=== PATIENT | male | born 1960 | race Caucasian/White ===

== ENCOUNTER 2021-08-16 10:06 | Emergency (ER) | payer BC ==
[2021-08-16] MEDS ORDERED: Meclizine 25 MG Tab PO ONE (10:18)
[2021-08-16] MEDS ORDERED: Diazepam 5 MG Tab PO ONE (10:18)
[2021-08-16] MEDS ORDERED: Ondansetron 4 MG/2 ML SDV IVPUSH ONE (10:19)
[2021-08-16] MEDS ORDERED: Sodium Chloride 0.9% 10 ML Syringe FLUSH PRN (10:34)
[2021-08-16 11:07] LABS: ANION GAP 12.8 meq/L (7-15); CHLORIDE,CL 104 mmol/L (98-107); SODIUM,NA 139 mmol/L (136-145)
[2021-08-16 11:12] LABS: ESTIMATED GFR > 60 mL/min
[2021-08-16] MEDS ORDERED: Promethazine 25 MG Tab PO ONE (13:04)
== END 2021-08-16 13:54 | disposition home or self-care (01) ==
LOC: LL.ED 10:06
DX: R42 Dizziness and giddiness (principal); E78.00 Pure hypercholesterolemia, unspecified; Z79.899 Other long term (current) drug therapy
CPT/HCPCS: 36415; 70450; 80053; 83735; 84484; 85025; 85379; 96374; 99284; 99284-25; A9270-GY; J2405; J3490